=== PATIENT | male | born 1990 | race African-American/Black ===

== ENCOUNTER 2024-08-21 18:11 | Emergency (ER) | payer OTHER, SELFPAY ==
[2024-08-21 18:18] VITALS: BP 136/83; PULSE 70; RESP 16; TEMP 36.5; O2SAT 97
[2024-08-21 18:29] LABS: Appearance Urine UA CLEAR; Bilirubin Urine UA NEGATIVE (NEGATIVE); Color Urine UA YELLOW; Glucose Urine UA NEGATIVE (Negative); Ketones Urine UA NEGATIVE (NEGATIVE); Leukocyte Esterase Urine UA NEGATIVE (NEGATIVE); Nitrite Urine UA NEGATIVE (Negative); Occult Blood Urine UA NEGATIVE (Negative); Protein Urine UA NEGATIVE (Negative); Urobilinogen Urine UA 0.2 E.U./dL (0.2)
[2024-08-21 18:34] LABS: Bacteria Urine Few (2-10); RBC Urine None Seen (0-5/HPF); Squamous Epithelial Cell Urine 0-1 /HPF (0-5/HPF); Urine Volume 10mL (spun); WBC Urine 0-1/HPF (0-5/HPF)
[2024-08-21 18:35] LABS: Culture Indicated Urine Cult Not Indicated
[2024-08-21 19:57] LABS: Urine N gonorrhoeae NOT DETECTED
[2024-08-21 20:11] LABS: Urine Chlamydia NOT DETECTED
--- NOTE | 2024-08-21 23:27 | ED_ITS ---
HPI - Male Genitourinary General Chief complaint: Urogenital-Male Stated complaint: urinary issue Time Seen by Provider: 08/21/24 23:26 Source: patient, RN notes reviewed and old records reviewed Mode of arrival: Ambulatory Limitations: no limitations History of Present Illness HPI Narrative: 34-year-old male with a history of horseshoe kidney denies any other medical issues. Patient states he started having dysuria in the last 12-24 hours. Has been persistent he noticed a little bit of redness the urethral opening but no other changes. He denies abdominal back or flank pain. No testicular pain. Pain is just with urination. He states it feels like being through razor blade or gap glass. Denies any discharge. Is has not had sexual activity recently does not have high concern for STIs. Patient states he has had a UTI once before that was treated with oral antibiotics. Patient states no allergies. No daily prescription medication denies any major surgeries. No regular tobacco, alcohol or recreational drugs. Related Data Previous Rx's Medication Instructions Recorded sulfamethoxazole 800 1 tab PO BID #14 tabs 08/21/24 mg-trimethoprim 160 mg tablet (Bactrim DS) Review of Systems Review of Systems ROS Unobtainable: All systems reviewed & are unremarkable except as noted in HPI and below Exam Narrative Exam Narrative: GENERAL: Alert and oriented x three, male in mild distress HEENT: Head normocephalic, atraumatic, EOMI, pupils reactive, face symmetric, moist mucous membranes NECK: Supple, full range of motion CARDIOVASCULAR: Regular rate and rhythm without murmurs, rubs or gallops. RESPIRATORY: Breath sounds equal bilaterally, no wheezes rales or rhonchi. ABDOMEN: Soft, nontender. Normoactive bowel sounds all 4 quadrants. No g uarding or rebound, rigidity, no mass : No CVA tenderness, Male: normal external examination, no penile discharge or lesions, testicles non-tender, cremasteric reflex intact, no inguinal hernias noted. EXTREMITIES: Normal range of motion, no clubbing or edema. Neurovascularly intact NEUROLOGICAL: Cranial nerves II through XII grossly intact. Moving all extremities SKIN: Warm, dry, no petechiae, no rashes or lesions. Initial Vital Signs Initial Vital Signs: Vital Signs Temperature 97.7 F 08/21/24 18:18 Pulse Rate 70 08/21/24 18:18 Respiratory Rate 16 02/14/25 18:18 Blood Pressure 136/83 08/21/24 18:18 Pulse Oximetry 97 08/21/24 18:18 Oxygen Delivery Method Room Air 08/21/24 18:18 Course Orders Ordered: ED Orders 08/22/24 05:47 Urine Culture Stat Discontinued Medications Trimethoprim/Sulfamethoxazole (Trimeth/Sulfa 160/800 (Ds) Tablet) 1 tab PO NOW ONE Stop: 08/21/24 23:45 Last Admin: 08/21/24 23:53 Dose: 1 tab Documented By: Vital Signs Vital signs: Vital Signs - 8 hr 08/21/24 23:43 08/21/24 23:57 Temperature 97.8 F Pulse Rate 53 L 56 L Respiratory Rate 18 14 Blood Pressure 132/82 129/75 Pulse Oximetry 97 98 Oxygen Delivery Method Room Air Room Air MDM - Male Genitourinary Lab Data Labs: Lab Results 08/21/24 Range/Units 18:23 Urine Color Yellow Urine Appearance Clear Urine pH 6.0 (4.5-8.0) Ur Specific [place] 1.020 (1.000-1.035) Urine Protein Negative (Negative) Urine Glucose (UA) Negative (Negative) g/dL Urine Ketones Negative (NEGATIVE) Urine Occult Blood Negative (Negative) Urine Nitrate Negative (Negative) Urine Bilirubin Negative (NEGATIVE) Urine Urobilinogen 0.2 (0.2) E.U./dL Ur Leukocyte Esterase Negative (NEGATIVE) Urine RBC None seen (0-5/HPF) Urine WBC 0-1/hpf (0-5/HPF) Ur Squamous Epith Cells 0-1 /hpf (0-5/HPF) Urine Bacteria Few (2-10) H (None) Ur Culture Indicated? Cult not indicated Vol Urine Centrifuged 10ml (spun) Ur Chlamydia DNA (PCR) Not detected N gonorrhoeae DNA (PCR) Not detected MDM Narrative Medical decision making narrative: Urine shows bacteria 1 white cell 1 squamous otherwise negative. Urine GC is negative. Patient has had dysuria, does have bacteria but no other changes. We will treat with the oral antibiotic for potential UTI although discussed with patient STIs would still potentially be on the differential and if no improvement does need follow up for additional testing. Also discussed no sexual activity while being treated. Patient expressed understanding. Discharge Plan Departure Patient Disposition: Home Clinical Impression: Dysuria, Bacteria in urine Instructions: DI for Dysuria -- Adult Activity Restrictions/Additional Instructions: Please follow up for recheck if you are having persistent symptoms, your urine gonorrhea/chlamydia was negative you had bacteria in your urine but you should have additional testing if symptoms are persisting. Did send your urine for a urine culture this takes 48-72 hours to resolve if it shows resistance to the antibiotic provided we will contact you but we do not call for negative urine cultures. Prescription was sent to [facility] in [place]. These take antibiotics until completed. Please return for fevers, new abdominal back or flank pain, vomiting, difficulty or inability to urinate or other new or concerning changes. Prescriptions: New sulfamethoxazole-trimethoprim [Bactrim DS] 800-160 mg tablet 1 tab PO BID Qty: 14 0RF Referrals: ProviderJenae [Primary Care Provider] - Stand Alone Forms: Patient Portal/API/Survey
[2024-08-21 23:43] VITALS: BP 132/82; PULSE 53; RESP 18; O2SAT 97
[2024-08-21] MEDS: TRIMETH/SULFA 160/800 (DS) TABLET 1 TAB PO (23:53)
[2024-08-21 23:57] VITALS: BP 129/75; PULSE 56; RESP 14; TEMP 36.6; O2SAT 98
== END 2024-08-21 23:58 | disposition home or self-care (01) ==
PROVIDERS: Emergency Provider Emergency Medicine
DX: R30.0 Dysuria (principal); R82.71 Bacteriuria
CPT/HCPCS: 81001; 87086; 87491; 87591; 99283

== ENCOUNTER 2024-10-23 09:47 | Emergency (ER) | payer OTHER, SELFPAY ==
[2024-10-23 10:03] VITALS: BP 127/60; PULSE 87; RESP 21; TEMP 37.5; O2SAT 97; BMI 31.3
--- NOTE | 2024-10-23 10:46 | PC.NURSE ---
Patient states that they had a known UTI last month and denies completing the course of antibiotics as he kept forgetting to take them. Provider informed.
[2024-10-23 10:53] LABS: Urine Volume 10mL (spun)
[2024-10-23 10:54] LABS: Amorphous Sediment Urine 1+; Bacteria Urine None Seen; Culture Indicated Urine Cult Not Indicated; Ictotest Urine Negative (Negative); RBC Urine None Seen (0-5/HPF); Squamous Epithelial Cell Urine None Seen (0-5/HPF); WBC Urine None Seen (0-5/HPF)
[2024-10-23 10:56] LABS: Add Manual Diff / Slide Review NO; Basophils Absolute Auto 100 /uL (0-100); Basophils Percent Auto 0.5 % (0-2); Eosinophils Absolute Auto 0 /uL (0-450); Eosinophils Percent Auto 0.2 % (2-4); Hematocrit 40.4 % (41-53); Hemoglobin 14.2 g/dL (13.5-17.5); Lymphocytes Absolute Auto 700 /uL (1100-4500); Lymphocytes Percent Auto 5.4 % (25-40); Mean Corpuscular HGB Conc 35.2 % (30-36); Mean Corpuscular Hemoglobin 29.4 PG (26-34); Mean Corpuscular Volume 83.6 fL (80-100); Monocytes Absolute Auto 1200 /uL (0-900); Monocytes Percent Auto 9.2 % (3-14); Neutrophils Absolute Auto 11300 /uL (1500-7000); Neutrophils Percent Auto 84.7 % (50-75); Platelet Count 206 X10^3/uL (150-400); Red Blood Cell Count 4.84 X10^6/uL (4.5-5.9); Red Cell Distribution Width 12.8 % (11.6-14.8); White Blood Cell Count 13.3 X10^3/uL (4.5-11.0)
[2024-10-23 11:02] LABS: Influenza A - CEPHEID Flu A NEGATIVE (NEGATIVE); Influenza B - CEPHEID Flu B NEGATIVE (NEGATIVE); Respiratory Syncytial Virus Negative (Negative)
[2024-10-23 11:05] LABS: COVID-19 CEPHEID 4-PLEX PCR Negative (Negative)
[2024-10-23 11:07] LABS: Alanine Aminotransferase 20 IU/L (<50); Albumin 4.4 g/dL (3.5-5.0); Albumin Globulin Ratio 1.3 (1.0-2.8); Alkaline Phosphatase 50 U/L (38-126); Aspartate Aminotransferase 26 IU/L (17-59); BUN Creatinine Ratio 10.1 (6-22); Bilirubin Total 1.5 mg/dL (0.2-1.3); Blood Urea Nitrogen 18 mg/dL (9-20); Calcium 9.2 mg/dL (8.4-10.2); Carbon Dioxide 26 mmol/L (22-32); Chloride 101 mmol/L (98-107); Estimated Glomerular Filt Rate 51 mL/min (>60); Globulin 3.4 g/dL (1.7-4.1); Glucose 95 mg/dL (70-100); HEMOLYSIS < 15 (0-50); Potassium 3.7 mmol/L (3.4-5.1); Sodium 134 mmol/L (137-145); Total Protein 7.8 g/dL (6.3-8.2)
--- NOTE | 2024-10-23 11:45 | ED.HA ---
HPI - Headache General Chief Complaint: Headache Stated Complaint: Headache, pressure in chest, throat hurt,body ache Time Seen by Provider: 10/23/24 11:09 Mode of arrival: Ambulatory History of Present Illness HPI Narrative: Patient here for sore throat body aches headache pertinent past 2 weeks. Patient was prescribed antibiotics for UTI but did not complete them or take very many of them. He has no urinary complaints. No known sick contacts. He does have history horseshoe kidney. Patient in no distress, not toxic. Related Data Previous Rx's Medication Instructions Recorded sulfamethoxazole 800 1 tab PO BID #14 tabs 08/21/24 mg-trimethoprim 160 mg tablet (Bactrim DS) amoxicillin 875 mg-potassium 1 tab PO BID #14 tabs 10/23/24 clavulanate 125 mg tablet Allergies Allergy/AdvReac Type Severity Reaction Status Date / Time No Known Drug Allergies Allergy Verified 10/23/24 10:33 Review of Systems Review of Systems Narrative: GENERAL: Positive chills, fatigue, malaise, fever, negative sweats. HEENT: Negative sinus pain, ear pain, positive sore throat RESPIRATORY: Negative dyspnea, cough CARDIOVASCULAR: Negative chest pain, palpitations GASTROINTESTINAL: Negative vomiting, nausea, abdominal pain : Negative dysuria, frequency, hematuria MUSCULOSKELETAL: Negative muscle or bony pain SKIN: Negative rash, skin lesions NEUROLOGIC: Negative weakness, numbness ROS Unobtainable: All systems reviewed & are unremarkable except as noted in HPI and below Patient History Social History Smoking Status: Never smoker Smoking Status: Never smoker Exam Narrative Exam Narrative: GENERAL: in no distress, not toxic not dyspneic HEAD: Normocephalic. EYES: Pupils equal round ENT: Mucous membranes moist. No malocclusion or trismus. There is symmetric bilateral erythema of the pharynx, no edema, no exudates. No tongue elevation or drooling. No stridor. NECK: Trachea midline. CARDIOVASCULAR: Regular rate and rhythm RESPIRATORY: Clear to auscultation. Breath sounds equal bilaterally. No wheezes, rales, or rhonchi. GASTROINTESTINAL: Abdomen soft, non-tender EXTREMITIES: No gross deformities. BACK: No flank tenderness. NEURO: AOx4. Clear speech SKIN: Warm and dry PSYCH: Not anxious, is cooperative Initial Vital Signs Initial Vital Signs: Vital Signs Temperature 99.5 F 10/23/24 10:03 Pulse Rate 87 10/23/24 10:03 Respiratory Rate 21 10/23/24 10:03 Blood Pressure 127/60 10/23/24 10:03 Pulse Oximetry 97 10/23/24 10:03 Oxygen Delivery Method Room Air 10/23/24 10:03 Course Orders Ordered: Discontinued Medications Amoxicillin/Clavulanate Potassium (Amoxicillin/Clav 875/125 Mg) 1 tab PO NOW ONE Stop: 10/23/24 11:51 Last Admin: 10/23/24 12:24 Dose: 1 tab Documented By: RY Sodium Chloride (Normal Saline 0.9%) 1,000 mls @ 1,000 mls/hr IV BOLUS ONE Stop: 10/23/24 12:42 Last Infusion: 10/23/24 13:30 Dose: Infused Documented By: Admin: 10/23/24 12:23 Dose: 1,000 mls/hr Documented By: RY Vital Signs Vital signs: Vital Signs - 8 hr 10/23/24 10:03 Temperature 99.5 F Pulse Rate 87 Respiratory Rate 21 Blood Pressure 127/60 Pulse Oximetry 97 Oxygen Delivery Method Room Air MDM - Headache Lab Data 10/23/24 10:45 10/23/24 10:45 Labs: Lab Results 10/23/24 10/23/24 10/23/24 Range/Units 10:00 10:29 10:45 WBC 13.3 H (4.5-11.0) X10^3/uL RBC 4.84 (4.5-5.9) X10^6/uL Hgb 14.2 (13.5-17.5) g/dL Hct 40.4 L (41-53) % MCV 83.6 (80-100) fL MCH 29.4 (26-34) PG MCHC 35.2 (30-36) % RDW 12.8 (11.6-14.8) % Plt Count 206 (150-400) X10^3/uL Neut % (Auto) 84.7 H (50-75) % Lymph % (Auto) 5.4 L (25-40) % [place] % (Auto) 9.2 (3-14) % Eos % (Auto) 0.2 L (2-4) % Baso % (Auto) 0.5 (0-2) % Neut # (Auto) 02982 H (7997-6955) /uL Lymph # (Auto) 700 L (7625-2048) /uL [place] # (Auto) 1200 H (0-900) /uL Eos # (Auto) 0 (0-450) /uL Baso # (Auto) 100 (0-100) /uL Sodium 134 L (137-145) mmol/L Potassium 3.7 (3.4-5.1) mmol/L Chloride 101 (98-107) mmol/L Carbon Dioxide 26 (22-32) mmol/L BUN 18 (9-20) mg/dL Creatinine 1.78 H (0.66-1.25) mg/dL Estimated GFR 51 L (>60) mL/min BUN/Creatinine Ratio 10.1 (6-22) Glucose 95 (70-100) mg/dL Lactate 1.0 (0.7-2.1) mmol/L Calcium 9.2 (8.4-10.2) mg/dL Total Bilirubin 1.5 H (0.2-1.3) mg/dL AST 26 (17-59) IU/L ALT 20 (<50) IU/L Alkaline Phosphatase 50 (38-126) U/L Total Protein 7.8 (6.3-8.2) g/dL Albumin 4.4 (3.5-5.0) g/dL Globulin 3.4 (1.7-4.1) g/dL Albumin/Globulin Ratio 1.3 (1.0-2.8) Procalcitonin 0.179 (<0.5) ng/mL Ur Bilirubin Confirm Negative (Negative) Urine RBC None seen (0-5/HPF) Urine WBC None seen (0-5/HPF) Ur Squamous Epith Cells None seen (0-5/HPF) Amorphous Sediment 1+ Urine Bacteria None seen (None) Ur Culture Indicated? Cult not indicated Vol Urine Centrifuged 10ml (spun) SARS-CoV-2 (PCR) Negative (Negative) Influenza A (RT-PCR) Flu a negative (NEGATIVE) Influenza B (RT-PCR) Flu b negative (NEGATIVE) RSV (PCR) Negative (Negative) Group A Strep (PCR) (Negative) 10/23/24 Range/Units 11:30 WBC (4.5-11.0) X10^3/uL RBC (4.5-5.9) X10^6/uL Hgb (13.5-17.5) g/dL Hct (41-53) % MCV (80-100) fL MCH (26-34) PG MCHC (30-36) % RDW (11.6-14.8) % Plt Count (150-400) X10^3/uL Neut % (Auto) (50-75) % Lymph % (Auto) (25-40) % [place] % (Auto) (3-14) % Eos % (Auto) (2-4) % Baso % (Auto) (0-2) % Neut # (Auto) (1672-9379) /uL Lymph # (Auto) (1774-8956) /uL [place] # (Auto) (0-900) /uL Eos # (Auto) (0-450) /uL Baso # (Auto) (0-100) /uL Sodium (137-145) mmol/L Potassium (3.4-5.1) mmol/L Chloride (98-107) mmol/L Carbon Dioxide (22-32) mmol/L BUN (9-20) mg/dL Creatinine (0.66-1.25) mg/dL Estimated GFR (>60) mL/min BUN/Creatinine Ratio (6-22) Glucose (70-100) mg/dL Lactate (0.7-2.1) mmol/L Calcium (8.4-10.2) mg/dL Total Bilirubin (0.2-1.3) mg/dL AST (17-59) IU/L ALT (<50) IU/L Alkaline Phosphatase (38-126) U/L Total Protein (6.3-8.2) g/dL Albumin (3.5-5.0) g/dL Globulin (1.7-4.1) g/dL Albumin/Globulin Ratio (1.0-2.8) Procalcitonin (<0.5) ng/mL Ur Bilirubin Confirm (Negative) Urine RBC (0-5/HPF) Urine WBC (0-5/HPF) Ur Squamous Epith Cells (0-5/HPF) Amorphous Sediment Urine Bacteria (None) Ur Culture Indicated? Vol Urine Centrifuged SARS-CoV-2 (PCR) (Negative) Influenza A (RT-PCR) (NEGATIVE) Influenza B (RT-PCR) (NEGATIVE) RSV (PCR) (Negative) Group A Strep (PCR) Positive H (Negative) Urine Dip Bedside Urine Glucose Negative Bedside Urine Bilirubin + 1 Bedside Urine Ketone + 15 Urine Specific [place] 1.015 Bedside Urine Occult Blood - Negative Bedside Urine pH 6.0 Bedside Urine Protein +/- 15 Bedside Urine Urobilinogen +/- 1mg Bedside Urine Nitrite - Negative Bedside Urine Leukocytes - Negative Esterase MDM Narrative Medical decision making narrative: Patient here for sore throat body aches headache pertinent past 2 weeks. Patient was prescribed antibiotics for UTI but did not complete them or take very many of them. He has no urinary complaints. No known sick contacts. He does have history horseshoe kidney. Patient in no distress, not toxic. After history and exam, respiratory panel strep screen urinalysis CBC CMP normal saline, patient states headache is gone does not want anything for pain. Lactic acid procalcitonin no EKG or imaging indicated at this time. Chest pain is reproducible MDM Medical records reviewed: No recent visit for this complaint Differential considered: Includes but not limited to strep throat influenza RSV COVID UTI meningitis encephalitis Lab Test results independently reviewed as above. Pertinent findings: WBC 13.3 hemoglobin 14.2 sodium 134 potassium 3.7 BUN 18 creatinine 1.78 GFR 51 urinalysis negative leukocyte negative nitrate negative bacteria negative WBC Strep screen positive Re-evaluations: 12:13 p.m.. Updated patient results. They are reassuring at this time. Patient airway intact. No imaging indicated. Clinically will treat for strep throat. Patient agrees. Work note provided. Hydration instructions provided. He desires discharge home. Discussion: Appropriate for discharge home. IV fluids were given. Augmentin was started. Return precautions reviewed with patient. Patient not toxic. Airway intact. Diagnosis: Strep Pharyngitis Discharge Plan Departure Patient Disposition: Home Clinical Impression: Strep throat Instructions: DI for Strep Throat Activity Restrictions/Additional Instructions: You are being treated for strep throat. Antibiotics have been started. Keep well hydrated. Return if worse if any questions or concerns. Work note has been provided for you as well. See family doctor or your clinic next week for re-evaluation. Prescriptions: New amoxicillin-pot clavulanate 875-125 mg tablet 1 tab PO BID Qty: 14 0RF No Action sulfamethoxazole-trimethoprim [Bactrim DS] 800-160 mg tablet 1 tab PO BID Qty: 14 0RF Referrals: Provider,Jenae JOE [Primary Care Provider] - Stand Alone Forms: Patient Portal/API/Survey, Work Release Note
[2024-10-23 11:50] LABS: Strep Grp A by PCR Rapid Positive (Negative)
[2024-10-23 12:10] LABS: Procalcitonin 0.179 ng/mL (<0.5)
[2024-10-23] MEDS: SODIUM CHLORIDE 0.9% 1,000 ML 1000 ML IV (12:23)
[2024-10-23] MEDS: AMOXICILLIN/CLAV 875/125 MG 1 TAB PO (12:24)
[2024-10-23 13:32] VITALS: PULSE 93; RESP 16; O2SAT 100
== END 2024-10-23 13:33 | disposition home or self-care (01) ==
PROVIDERS: Emergency Provider Emergency Medicine
DX: J02.0 Streptococcal pharyngitis (principal)
CPT/HCPCS: 0241U; 36415; 80053; 81003; 81015; 83605; 84145; 85025; 87040; 87651; 99284